=== PATIENT | female | born 1950 | race Caucasian/White ===

== ENCOUNTER 2019-02-26 15:37 | Emergency (ER) | payer MEDICARE, BC ==
[~2019-02-26] VITALS: Wt 89.7 kg
[2019-02-26] MEDS ORDERED: SOD CHLORIDE 0.9% 1,000 ML IV STA (18:20)
[2019-02-26] MEDS ORDERED: morphine 4 MG/ML VIAL IV STA (18:20)
[2019-02-26] MEDS ORDERED: ONDANSETRON 4 MG INJ IV STA (18:20)
[2019-02-26] MEDS ORDERED: IBUPROFEN 200 MG TAB PO ONE (18:30)
[2019-02-26] MEDS ORDERED: ONDA4TAB14 PO (19:40)
[2019-02-26] MEDS ORDERED: IBUP-1542 PO (19:40)
[2019-02-26] MEDS ORDERED: NITR-58 PO (19:40)
[2019-02-26] MEDS ORDERED: NITROFURANTOIN (SR) 100 MG CAP PO ONE (20:00)
--- NOTE | 2019-02-26 20:06 | ERD ---
ER Documentation Chief Complaint Chief Complaint ABD PAIN X 1 WEEK WITH N/V HPI Patient is a 68-year-old female with high cholesterol who presents with abdominal pain. The patient has had 1 week of abdominal pain which is diffuse tightness. Now the pain is more in the lower abdomen bilaterally. She said that she has felt trapped gas in the past but this feels much different. She said that she had a fever of 102 over the past 2 days. She has not taken any pain medicine as of yet. She was scared to take Advil and says that this is the only pain medicine she can take. She has had no treatment as of yet. She does admit to nausea and vomiting. Upon review of old medical records this is the patient's first visit to the emergency department. Her primary doctor is Dr. Madi Meyer. ROS All systems reviewed and are negative except as per history of present illness. Medications Home Meds Active Scripts Ondansetron (Ondansetron Odt) 4 Mg Tab.rapdis, 4 MG PO Q6H PRN for NAUSEA AND/OR VOMITING, #10 TAB Prov:ISAMAR TORRES MD 02/26/19 Ibuprofen* (Motrin*) 600 Mg Tab, 600 MG PO Q6H PRN for PAIN AND OR ELEVATED TEMP, #30 TAB Prov:ISAMAR TORRES MD 02/26/19 Nitrofurantoin Monohyd Macrocr* (Macrobid*) 100 Mg Capsr, 100 MG PO BID for 7 Days, CAP Prov:ISAMAR TORRES MD 02/26/19 PMhx/Soc Medical and Surgical Hx: pt denies Medical Hx, pt denies Surgical Hx Hx Alcohol Use: No Hx Substance Use: No Hx Tobacco Use: Yes Smoking Status: Current every day smoker FmHx Family History: No diabetes Physical Exam Vitals Vital Signs Date Temp Pulse Resp B/P (MAP) Pulse Ox O2 O2 Flow FiO2 Time Delivery Rate 02/26/19 88 16 123/70 98 Room Air 19:06 (87) 02/26/19 99.9 118 18 153/80 99 15:47 (104) Physical Exam Const: Moderate distress secondary to pain Head: Atraumatic Eyes: Normal Conjunctiva ENT: Normal External Ears, Nose and Mouth. Neck: Full range of motion. No meningismus. Resp: Clear to auscultation bilaterally Cardio: Regular rate and rhythm, no murmurs Abd: Lower abdominal pain bilaterally without rebound or guarding Skin: No petechiae or rashes Back: No midline or flank tenderness Ext: No cyanosis, or edema Neur: Awake and alert Psych: Normal Mood and Affect Result Diagram: 02/26/19182902/26/191829 Results 24 hrs Laboratory Tests Test 02/26/19 18:30 02/26/19 18:45 White Blood Count 15.7 10^3/ul Red Blood Count 5.39 10^6/ul Hemoglobin 15.5 g/dl Hematocrit 47.6 % Mean Corpuscular Volume 88.3 fl Mean Corpuscular Hemoglobin 28.8 pg Mean Corpuscular Hemoglobin Concent 32.6 g/dl Red Cell Distribution Width 13.6 % Platelet Count 315 10^3/UL Mean Platelet Volume 10.0 fl Immature Granulocytes % 0.400 % Neutrophils % 68.0 % Lymphocytes % 22.3 % Monocytes % 7.9 % Eosinophils % 0.8 % Basophils % 0.6 % Nucleated Red Blood Cells % 0.0 /100WBC Immature Granulocytes # 0.060 10^3/ul Neutrophils # 10.7 10^3/ul Lymphocytes # 3.5 10^3/ul Monocytes # 1.2 10^3/ul Eosinophils # 0.1 10^3/ul Basophils # 0.1 10^3/ul Nucleated Red Blood Cells # 0.0 10^3/ul Sodium Level 138 mmol/L Potassium Level 4.2 mmol/L Chloride Level 102 mmol/L Carbon Dioxide Level 24 mmol/L Anion Gap 12 Blood Urea Nitrogen 13 mg/dl Creatinine 1.01 mg/dl Est Glomerular Filtrat Rate mL/min 55 mL/min Glucose Level 114 mg/dl Calcium Level 10.0 mg/dl Total Bilirubin 1.2 mg/dl Direct Bilirubin 0.00 mg/dl Indirect Bilirubin 1.2 mg/dl Aspartate Amino Transf (AST/SGOT) 34 IU/L Alanine Aminotransferase (ALT/SGPT) 36 IU/L Alkaline Phosphatase 122 IU/L Troponin I < 0.012 ng/ml Total Protein 8.8 g/dl Albumin 4.7 g/dl Globulin 4.10 g/dl Albumin/Globulin Ratio 1.14 Lipase 101 U/L Urine Color YELLOW Urine Clarity SLIGHTLY CLOUDY Urine pH 5.0 Urine Specific [place] 1.021 Urine Ketones NEGATIVE mg/dL Urine Nitrite NEGATIVE mg/dL Urine Bilirubin NEGATIVE mg/dL Urine Urobilinogen NEGATIVE mg/dL Urine Leukocyte Esterase 1+ Anhum/ul Urine Microscopic RBC 2 /HPF Urine Microscopic WBC 18 /HPF Urine Squamous Epithelial Cells FEW /HPF Urine Bacteria FEW /HPF Urine Mucus FEW /HPF Urine Hemoglobin 1+ mg/dL Urine Glucose NEGATIVE mg/dL Urine Total Protein NEGATIVE mg/dl Current Medications Medications Dose Sig/Ad Start Time Status Last (Trade) Ordered Route PRN Stop Time Admin Dose Reason Admin Sodium 1,000 ml @ Q1H STAT 02/26/19 DC 02/26/19 Chloride 1,000 mls/hr IV 18:20 18:45 02/26/19 19:19 Morphine 4 mg ONCE STAT 02/26/19 DC Sulfate IV 18:20 (morphine) 02/26/19 18:26 Ondansetron 4 mg ONCE STAT 02/26/19 DC 02/26/19 HCl (Zofran IV 18:20 18:45 Inj) 02/26/19 18:21 Ibuprofen 800 mg ONCE ONCE 02/26/19 DC 02/26/19 (Motrin) PO 18:30 18:45 02/26/19 18:31 100 mg ONCE ONCE 02/26/19 DC 02/26/19 Nitrofurantoi PO 20:00 19:40 n 02/26/19 20:01 Macrocrystals (Macrobid) Procedures/MDM CT abdomen pelvis is pending radiology read at this time. Smoking Cessation Therapy: Pt. was lectured for greater than 3 minutes on the health risks of continued smoking and the benefits of cessation. Patient is a 68-year-old female with high cholesterol who presents with abdominal pain. The patient was found to have acute cystitis and was given Macrobid. Laboratory studies otherwise were normal. The patient is pending a CT scan of the abdomen and pelvis at this time. If the patient CT scan is nega tive for surgical process she will likely be discharged with a prescription for Macrobid, ibuprofen, and Zofran. Departure Diagnosis: Primary Impression: Cystitis Additional Impression: Abdominal pain Abdominal location: lower abdomen, unspecified Qualified Codes: R10.30 - Lower abdominal pain, unspecified Condition: Fair Patient Instructions: Abdominal Pain, Cystitis Additional Instructions: Call your primary care doctor TOMORROW for an appointment during the next 1-2 days.See the doctor sooner or return here if your condition worsens before your appointment time. ISAMAR TORRES MD Feb 26, 2019 20:06
[2019-02-26] MEDS ORDERED: METR500T PO (20:29)
[2019-02-26] MEDS ORDERED: DOCU-144 PO (20:29)
[2019-02-26] MEDS ORDERED: CIPR500T4 PO (20:29)
[2019-02-26] MEDS ORDERED: AMPICILLIN/SULB 3 GM/NS (PMX) 100 ML IVPB ONE (20:30)
[2019-02-26 21:37] VITALS: BP 117/61; PULSE 75; RESP 16
== END 2019-02-26 21:50 | disposition home or self-care (01) ==
LOC: E/R 15:37
DX: N30.90 Cystitis, unspecified without hematuria (principal); F17.210 Nicotine dependence, cigarettes, uncomplicated
CPT/HCPCS: 36415; 74176; 80053; 81001; 83690; 84484; 85025; 96374; 96375; 99285; J0295; J2405; J7030; 93005